=== PATIENT | male | born 1945 | race Caucasian/White ===

== ENCOUNTER 2023-01-29 16:57 | Emergency (ER) | payer MEDICARE ==
[2023-01-29] MEDS ORDERED: Bacitracin Oint 1 GM U/D Packet TOP ONE (17:10)
[2023-01-29] MEDS ORDERED: Lidocaine 1% 5 ML VIAL INJECT ONE (17:10)
== END 2023-01-29 18:10 | disposition home or self-care (01) ==
LOC: JP.ED 16:57
DX: S60.352A Superficial foreign body of left thumb, initial encounter (principal); E78.00 Pure hypercholesterolemia, unspecified; I10 Essential (primary) hypertension; Z79.899 Other long term (current) drug therapy; W45.8XXA Other foreign body or object entering through skin, initial encounter
CPT/HCPCS: 99282